=== PATIENT | female | born 1975 | race Caucasian/White ===

== ENCOUNTER 2017-01-18 08:31 | Day surgery (SDC) | payer OTHER ==
[~2017-01-18 08:31] MED LIST: IV START KIT ONE; LACTATED RINGERS 1,000 ML ONE
[2017-01-18] MEDS ORDERED: LACTATED RINGERS 1,000 ML IV SCH ×2 (08:35→11:00)
[2017-01-18] MEDS ORDERED: LIDOCAINE 1% 2 ML VIAL ID PRN (08:35)
[2017-01-18] MEDS ORDERED: ROCURONIUM BROMIDE 10 MG/ML DOSE IV ONE (08:54)
[2017-01-18] MEDS ORDERED: SUCCINYLCHOLINE CHL 20 MG/ML DOSE ONE (08:54)
[2017-01-18] MEDS ORDERED: LIDOCAINE 2% (MULTI DOSE) 10 ML VIAL ONE (08:54)
[2017-01-18] MEDS ORDERED: PROPOFOL 20 ML IV ONE (09:19)
[2017-01-18] MEDS ORDERED: FENTANYL 250 MCG/5 ML AMP ONE (09:20)
[2017-01-18] MEDS ORDERED: MIDAZOLAM HCL 1 MG/ML 2ML VIAL ONE (09:20)
[2017-01-18] MEDS ORDERED: LACTATED RINGERS 1,000 ML ONE (10:16)
[2017-01-18] MEDS ORDERED: GLYCOPYRROLATE 0.2 MG/ML 1ML VIAL ONE ×4 (10:38→11:06)
[2017-01-18] MEDS ORDERED: KETAMINE HCL UD SYRINGE 100 MG/2 ML IV ONE (10:46)
[2017-01-18] MEDS ORDERED: DEXAMETHASONE SOD PHOS 4 MG/1 ML VIAL ONE (10:48)
[2017-01-18] MEDS ORDERED: ONDANSETRON 4 MG/2ML 2 ML VIAL ONE (10:48)
[2017-01-18] MEDS ORDERED: FENTANYL 100 MCG/2 ML VIAL IV PRN (10:56)
[2017-01-18] MEDS ORDERED: ATROPINE SULFATE 0.4 MG/1 ML VIAL IV PRN (10:56)
[2017-01-18] MEDS ORDERED: ONDANSETRON 4 MG/2ML 2 ML VIAL IV PRN ×2 (10:56→12:05)
[2017-01-18] MEDS ORDERED: NALOXONE HCL 0.4 MG/ML VIAL IV PRN (10:56)
[2017-01-18] MEDS ORDERED: PROMETHAZINE HCL 25 MG/ML VIAL IM PRN (10:56)
[2017-01-18] MEDS ORDERED: MEPERIDINE 25 MG/ML SYRINGE IV PRN (10:56)
[2017-01-18] MEDS ORDERED: NEOSTIGMINE METHYLSULFATE 1 MG/ML DOSE ONE (11:06)
[2017-01-18] MEDS ORDERED: KETOROLAC TROMETHAMINE 30 MG/ML 1 ML VIAL ONE (11:11)
--- NOTE | 2017-01-18 11:36 | PCMBPN ---
Brief Post Op Note: Date of Procedure: 01/18/17 Start Time: [] Preoperative Diagnosis: 1. [pelvic pain] Postoperative Diagnosis: 1. [Same] Procedure: [diagnostic laparoscopy] Surgeon: Gloria Mckenzie DO Assist:[] Anesthesia: [general] Findings: [normal pelvic organs, no evidence of endometriosis] Condition: [stable] Complications: [none] IV Fluids: [100] mLs of LR [] Urine Output: [30] mLs Estimated Blood Loss: [5] mLs Tourniquet Time: [N/A] Specimens: [N/A] Implants: [] Drains: [N/A]
[2017-01-18] MEDS ORDERED: HYDROMORPHONE HCL 1 MG/ML SYRINGE ONE (11:41)
[2017-01-18] MEDS: HYDROMORPHONE HCL 1 MG/ML SYRINGE IV PRN ×2 (11:42→11:59)
[2017-01-18] MEDS ORDERED: FAMOTIDINE 10 MG/ML 2ML VIAL IV PRN (12:05)
[2017-01-18] MEDS ORDERED: MORPHINE SULFATE 2 MG/ML SYRINGE IV PRN (12:05)
[2017-01-18] MEDS ORDERED: DIPHENHYDRAMINE HCL 50 MG/1 ML VIAL IV PRN (12:05)
[2017-01-18] MEDS ORDERED: IBUPROFEN 800 MG TABLET PO PRN (12:05)
[2017-01-18] MEDS ORDERED: OXYCODONE/ACETAMINOPHEN 5/325 MG TABLET PO PRN (12:05)
[2017-01-18] MEDS ORDERED: OXYCODONE/ACETAMINOPHEN 5/325 MG TABLET ONE (14:28)
--- NOTE | 2017-01-18 16:59 | OP ---
LYNNE GAY [id number] DATE OF : 1975 DATE OF PROCEDURE: 01/18/2017 PREOPERATIVE DIAGNOSIS: Pelvic pain. POSTOPERATIVE DIAGNOSIS: Pelvic pain. PROCEDURE: DIAGNOSTIC LAPAROSCOPY. SURGEON: Dr. Gloria Mckenzie ANESTHESIA: General. FINDINGS: Normal pelvic organs, no evidence of endometriosis. CONDITION: Stable. COMPLICATIONS: None. IV FLUIDS: 1,000 mL of lactated Ringer's. URINE OUTPUT: 30 mL ESTIMATED BLOOD LOSS: 5 mL SPECIMENS: None. IMPLANTS: None. DRAINS: None. PROCEDURE: The patient was taken back to the OR with IV fluids running where she was prepped and draped in a dorsal lithotomy position in normal sterile fashion. Attention was turned to the patient's vagina. A speculum was placed in the patient's vagina and a single-tooth tenaculum was placed over the anterior lip of the cervix. A uterine manipulator was gently introduced into the uterine cavity and insufflated. The tenaculum and speculum were removed and attention was then turned to the patient's abdomen. A 5 mm infraumbilical incision was made and an OptiView trocar was placed into the abdominal cavity under direct visualization. Intraabdominal survey revealed no evidence of endometriosis. Normal appearing pelvic organs. The procedure was determined to be complete. All instruments were removed from the patient's abdomen. The infraumbilical skin incision was closed with 4-0 MONOCRYL and all instruments were removed from the patient's vagina. The patient was easily aroused from anesthesia and was returned to the recovery room in stable condition.
[2017-01-18] MEDS ORDERED: KETOROLAC TROMETHAMINE 30 MG/ML 1 ML VIAL IV PRN (17:00)
== END 2017-01-18 14:55 | disposition home or self-care (01) ==
LOC: SDC 08:31
PROVIDERS: ATTEND Obstetrics & Gynecology
PROC: 0WJJ4ZZ Inspection of Pelvic Cavity, Percutaneous Endoscopic Approach (ICD-10-PCS; principal; 2017-01-18)
DX: R10.2 Pelvic and perineal pain (principal)
CPT/HCPCS: 49320; J1170; J3010; J1100; A9270; J1885; J2250; J2405; J7120 ×2; J2001